=== PATIENT | female | born 1955 | race Caucasian/White ===

== ENCOUNTER 2019-04-16 22:02 | Observation (INO) ==
[2019-04-16] MEDS ORDERED: methylPREDNISolone SOD SUC 125 MG/2 ML VIAL IV STA (22:50)
[2019-04-16 23:35] LABS: Basophils % 0.1 % (0.0-0.8); Eosinophils % 0.1 % (0.00-10.9); Hematocrit 34.4 VOL% (35.7-47.0); Hemoglobin 11.1 GM/DL (12.0-16.0); Immature Granulocytes % 1.8 %; Immature Granulocytes Absolute 0.35 #; Lymphocytes # 1.4 10*3/uL (1.4-4.0); Lymphocytes % 7.2 % (21.3-54.2); Mean Corpuscular HGB Conc 32.3 GM/DL (32-36); Mean Corpuscular Volume 88.2 FL (87-102); Mean Platelet Volume 10.3 FL (9.6-12.0); Monocytes % 7.9 % (1.7-12.7); Neutrophils % 82.9 % (38.7-73.9); Platelet Count 219 T/CUMM (130-400); Red Cell Distribution Width 14.6 % (9.3-17.3); White Blood Count 19.1 T/CUMM (4-12)
[2019-04-16 23:43] LABS: PT Patient Result 10.5 SECS
[2019-04-17] LABS: Alanine Aminotransferase 28 U/L (13-56); Albumin 2.3 G/DL (3.4-5.0); Alkaline Phosphatase 77 U/L (45-117); Aspartate Amino Transferase 26 U/L (0-37); Bilirubin,Total < 0.39 MG/DL (0.2-1.0); Blood Urea Nitrogen 95 MG/DL (7-18); Calcium 8.1 MG/DL (8.5-10.1); Glucose 132 MG/DL (74-106); Osmolality,Calculated 313.1 MOS/KG (273-304); Total Protein 5.5 G/DL (6.4-8.3); Troponin I < 0.015 NG/ML (0.00-0.045)
[2019-04-17] MEDS ORDERED: BISACODYL 5 MG TABLET PO PRN (01:29)
[2019-04-17] MEDS ORDERED: NICOTINE 21 MG/24 HR PATCH TRANSDERM PRN (01:29)
[2019-04-17] MEDS ORDERED: ONDANSETRON 4 MG/2 ML VIAL IV PRN (01:29)
[2019-04-17] MEDS ORDERED: diphenhydrAMINE CAP 25 MG CAPSULE PO PRN (01:29)
[2019-04-17] MEDS ORDERED: ACETAMINOPHEN 325 MG TABLET PO PRN (01:29)
[2019-04-17] MEDS ORDERED: guaiFENesin/DM ER 600-30 MG TABLET PO PRN (01:29)
[2019-04-17 02:00] LABS: Risk Ratio 2.69; VLDL CHOLESTEROL 25.4 MG/DL
[2019-04-17] MEDS: MORPHINE 4 MG/1 ML VIAL IV PRN ×3 (04:47→19:55)
[2019-04-17] MEDS: SODIUM CHLORIDE 0.9% 1,000 ML IV SCH ×2 (04:50→15:40)
[2019-04-17 05:39] LABS: Albumin 2.4 G/DL (3.4-5.0); Bilirubin,Total 0.4 MG/DL (0.2-1.0); Calcium 8.4 MG/DL (8.5-10.1); Osmolality,Calculated 308.1 MOS/KG (273-304); Total Protein 5.5 G/DL (6.4-8.3)
[2019-04-17] MEDS ORDERED: DEXTROSE 50% 25 GM/50 ML SYRINGE IV PRN (10:09)
[2019-04-17] MEDS ORDERED: GLUCAGON 1 MG VIAL IM PRN (10:09)
[2019-04-17 13:59] LABS: Apearance,Urine CLEAR (Clear); Bilirubin,Urine Negative (Negative); Blood, Urine Small mg/dL (Negative); Glucose,Urine (UA) Negative (Negative); Ketones,Urine Negative (Negative); Mucus,Urine Occasional /LPF (Occasional); Nitrite,Urine Negative (Negative); Protein,Urine >=500 MG/DL; RBC,Urine 1 /HPF (0-4); Squamous Epithelial Cell,Urine Occasional /HPF (0-10); Urine Color Yellow (Yellow); Urine Specific Gravity 1.016 (1.001-1.035); Urine Urobilinogen < 2.0 EU/DL (0.2-1.0); WBC,Urine 5 /HPF (0-6)
[2019-04-17] MEDS ORDERED: ERGOCALCIFEROL 50,000 UNIT CAPSULE PO SCH (14:00)
[2019-04-17] MEDS: DEXAMETHASONE 4 MG TABLET PO SCH ×2 (15:38→20:53)
[2019-04-17] MEDS ORDERED: DEXTROSE 50% 25 GM/50 ML VIAL IV PRN (15:44)
[2019-04-17] MEDS: INSULIN REGULAR 100 UNIT/ML SUBCUT SCH ×2 (16:04→20:59)
[2019-04-17] MEDS ORDERED: CARVEDILOL 25 MG TABLET PO ONE (16:37)
[2019-04-17] MEDS ORDERED: amLODIPine 5 MG TABLET PO ONE (16:38)
[2019-04-17] MEDS ORDERED: ISOSORBIDE MONONITRATE 30 MG TABLET PO ONE (16:38)
[2019-04-17] MEDS: ALBUTEROL 2.5 MG/3 ML NEB RESP TX SCH (16:48)
[2019-04-17] MEDS ORDERED: ATORVASTATIN 80 MG TABLET PO SCH (21:00)
[2019-04-17] MEDS ORDERED: ISOSORBIDE MONONITRATE 30 MG TABLET PO SCH ×2 (21:00)
[2019-04-17] MEDS ORDERED: traZODone 50 MG TABLET PO SCH (21:00)
[2019-04-17] MEDS ORDERED: CARVEDILOL 25 MG TABLET PO SCH ×2 (21:00)
[2019-04-17] MEDS ORDERED: DULoxetine 30 MG CAPSULE PO SCH (21:00)
[2019-04-17] MEDS ORDERED: GABAPENTIN 300 MG CAPSULE PO SCH (21:00)
[2019-04-17] MEDS ORDERED: amLODIPine 5 MG TABLET PO SCH ×2 (21:00)
[2019-04-18] MEDS: SODIUM CHLORIDE 0.9% 1,000 ML IV SCH (00:13)
[2019-04-18] MEDS: MORPHINE 4 MG/1 ML VIAL IV PRN (00:46)
[2019-04-18] MEDS: ALBUTEROL 2.5 MG/3 ML NEB RESP TX SCH (07:14)
[2019-04-18 08:12] VITALS: BP 142/64
[2019-04-18] MEDS: DEXAMETHASONE 4 MG TABLET PO SCH (08:47)
[2019-04-18] MEDS: INSULIN REGULAR 100 UNIT/ML SUBCUT SCH (08:47)
[2019-04-18] MEDS ORDERED: INSULIN LISPRO 100 UNIT/ML SUBCUT SCH (09:00)
[2019-04-18] MEDS ORDERED: FUROSEMIDE 40 MG TABLET PO SCH (09:00)
[2019-04-18] MEDS ORDERED: CLOPIDOGREL 75 MG TABLET PO SCH (09:00)
[2019-04-18] MEDS ORDERED: levETIRAcetam 250 MG TABLET PO SCH (11:00)
[2019-04-18] MEDS ORDERED: ISOSORBIDE MONONITRATE 30 MG TABLET PO SCH (21:00)
[2019-04-18] MEDS ORDERED: CARVEDILOL 25 MG TABLET PO SCH (21:00)
[2019-04-18] MEDS ORDERED: amLODIPine 5 MG TABLET PO SCH (21:00)
== END 2019-04-18 11:25 | disposition home or self-care (01) ==
LOC: N.EDINP 22:02 → N.4E 22:02 → N.ED 22:02 → OBSVTOIN 04-17 01:29 → N.4E 04-17 03:31
PROVIDERS: ADMIT Internal Medicine; ATTEND Internal Medicine

== ENCOUNTER 2019-06-01 09:33 | Inpatient (IN) ==
[2019-06-01] MEDS ORDERED: SODIUM CHLORIDE 0.9% 1,000 ML IV STA (10:03)
[2019-06-01 10:15] LABS: Hemoglobin 8.8 GM/DL (12.0-16.0); Lymphocytes # 0.4 10*3/uL (1.4-4.0); Lymphocytes % 97.4 % (21.3-54.2); Mean Corpuscular HGB Conc 31.4 GM/DL (32-36); Mean Platelet Volume 9.7 FL (9.6-12.0); Neutrophils % 2.6 % (38.7-73.9); Platelet Count 90 T/CUMM (130-400); Red Blood Count 3.11 MC/CUMM (3.8-5.5); Red Cell Distribution Width 16.3 % (9.3-17.3)
[2019-06-01] MEDS ORDERED: DEXAMETHASONE 10 MG/1 ML VIAL IV STA (10:32)
[2019-06-01 10:37] LABS: White Blood Count 0.4 T/CUMM (4-12)
[2019-06-01 10:38] LABS: PT Patient Result 10.7 SECS; Partial Thromboplastin Time 26.5 SECS (0-40)
[2019-06-01 10:56] LABS: Lymphocytes 100 % (20-55); Platelet Estimate Decreased; Total Cells Counted 100
[2019-06-01 10:57] LABS: Anisocytosis Slight
[2019-06-01 11:18] LABS: Amorphous Crystals,Urine Moderate /HPF (Few); Apearance,Urine CLEAR (Clear); Bilirubin,Urine Negative (Negative); Blood, Urine Small mg/dL (Negative); Glucose,Urine (UA) Negative (Negative); Hyaline Casts,Urine 3 /LPF (0-3); Ketones,Urine Negative (Negative); Mucus,Urine Occasional /LPF (Occasional); Nitrite,Urine Negative (Negative); Protein,Urine >=500 MG/DL; Urine Color Yellow (Yellow); Urine Specific Gravity 1.015 (1.001-1.035); Urine Urobilinogen < 2.0 EU/DL (0.2-1.0)
[2019-06-01 11:30] LABS: Barbiturates Screen,Urine Negative (Negative); Benzodiazepines Screen,Urine Negative (Negative); Cannabinoid Screen,Urine Negative (Negative); Opiate Screen,Urine Positive (Negative); Phencyclidine Screen,Urine Negative (Negative)
[2019-06-01] MEDS ORDERED: DEXTROSE 50% 25 GM/50 ML SYRINGE IV ONE (14:09)
[2019-06-01] MEDS ORDERED: DEXTROSE 50% 25 GM/50 ML VIAL IV STA (14:15)
[2019-06-01] MEDS ORDERED: DEXTROSE 5% NACL 0.45% 1,000 ML IV SCH (14:30)
[2019-06-01] MEDS: FILGRASTIM-SNDZ 300 MCG/0.5 ML SYRINGE SUBCUT SCH (14:40)
[2019-06-01] MEDS ORDERED: MORPHINE 4 MG/1 ML VIAL IV PRN (16:17)
[2019-06-01] MEDS ORDERED: ACETAMINOPHEN 325 MG TABLET PO PRN (16:17)
[2019-06-01] MEDS ORDERED: SODIUM CHLORIDE 0.9% 1,000 ML IV SCH (16:30)
[2019-06-01] MEDS ORDERED: LEVOFLOXACIN INJ 500 MG in PREMIX 1 EACH IV SCH (17:00)
[2019-06-01] MEDS: DEXTROSE 10% 25 GM/250 ML BAG IV PRN ×3 (17:10→21:12)
[2019-06-01 17:12] LABS: Albumin 1.3 G/DL (3.4-5.0); Bilirubin,Total 0.4 MG/DL (0.2-1.0); Calcium 7.7 MG/DL (8.5-10.1); Osmolality,Calculated 305.3 MOS/KG (273-304); Total Protein 5.1 G/DL (6.4-8.3)
[2019-06-01] MEDS ORDERED: GLUCAGON 1 MG VIAL IM PRN (17:19)
[2019-06-01] MEDS ORDERED: DEXTROSE 10% 250 ML IV ONE ×3 (17:20→21:08)
[2019-06-01] MEDS ORDERED: DEXTROSE 5% 1,000 ML IV SCH (18:00)
[2019-06-01] MEDS: POTASSIUM CHLORIDE INJ 20 MEQ in DEXTROSE 5% 1,000 ML IV SCH (20:42)
[2019-06-01] MEDS: DEXAMETHASONE 4 MG/1 ML VIAL IV SCH (20:42)
[2019-06-02] MEDS ORDERED: DEXTROSE 10% 250 ML IV ONE ×3 (00:29→05:59)
[2019-06-02] MEDS: DEXTROSE 10% 25 GM/250 ML BAG IV PRN ×3 (00:34→06:07)
[2019-06-02 04:26] LABS: Hemoglobin 7.3 GM/DL (12.0-16.0); Lymphocytes # 0.1 10*3/uL (1.4-4.0); Lymphocytes % 91.7 % (21.3-54.2); Mean Corpuscular HGB Conc 31.7 GM/DL (32-36); Mean Corpuscular Volume 89.1 FL (87-102); Mean Platelet Volume 10.2 FL (9.6-12.0); Neutrophils % 8.3 % (38.7-73.9); Red Blood Count 2.58 MC/CUMM (3.8-5.5); Red Cell Distribution Width 15.9 % (9.3-17.3)
[2019-06-02 04:54] LABS: Albumin 1.1 G/DL (3.4-5.0); Bilirubin,Total 0.5 MG/DL (0.2-1.0); Calcium 7.6 MG/DL (8.5-10.1); Osmolality,Calculated 299.1 MOS/KG (273-304); Total Protein 4.7 G/DL (6.4-8.3)
[2019-06-02 05:03] LABS: White Blood Count 0.1 T/CUMM (4-12)
[2019-06-02 05:04] LABS: Platelet Count 34 T/CUMM (130-400)
[2019-06-02 06:33] LABS: Lymphocytes 80 % (20-55); Segmented Neutrophils 20 % (50-85); Total Cells Counted 100
[2019-06-02 06:34] LABS: Anisocytosis Slight; Microcytosis Slight; Ovalocytes Few; Platelet Estimate Decreased
[2019-06-02] MEDS: POTASSIUM CHLORIDE INJ 20 MEQ in DEXTROSE 5% 1,000 ML IV SCH ×3 (07:14→20:33)
[2019-06-02] MEDS ORDERED: SODIUM CHLORIDE 0.9% 1,000 ML IV PRN (08:10)
[2019-06-02] MEDS ORDERED: PANTOPRAZOLE 40 MG TABLET PO SCH (09:00)
[2019-06-02] MEDS: FAMOTIDINE 20 MG/2 ML VIAL IV SCH ×2 (09:58→20:32)
[2019-06-02] MEDS: FILGRASTIM-SNDZ 300 MCG/0.5 ML SYRINGE SUBCUT SCH (10:01)
[2019-06-02] MEDS: DEXAMETHASONE 4 MG/1 ML VIAL IV SCH ×3 (10:02→20:31)
[2019-06-02] MEDS: VANCOMYCIN INJ 1,250 MG in SODIUM CHLORIDE 0.9% 250 ML IV SCH (10:06)
[2019-06-02] MEDS ORDERED: DEXTROSE 10% 250 ML BAG IV PRN (12:00)
[2019-06-02 12:38] LABS: ABG Base Excess 0.1 MMOL/L (-2.5-2.5); ABG HCO3 24.6 MMOL/L (20-26); ABG Oxygen Saturation 99.1 % (95-100); ABG PCO2 40.6 MM HG (35-48); ABG PH 7.396 (7.35-7.45); ABG TCO2 23.2 MMOL/L (23-27)
[2019-06-02] MEDS: ALBUTEROL/IPRATROPIUM 3 ML NEB RESP TX SCH ×3 (14:29→23:07)
[2019-06-02] MEDS: hydrALAZINE 20 MG/1 ML VIAL IV PRN (16:40)
[2019-06-02] MEDS: MORPHINE 4 MG/1 ML VIAL IV PRN (17:25)
[2019-06-02] MEDS: LEVOFLOXACIN INJ 250 MG in PREMIX 1 EACH IV SCH (18:07)
[2019-06-03] MEDS: hydrALAZINE 20 MG/1 ML VIAL IV PRN ×2 (00:46→09:10)
[2019-06-03] MEDS: ALBUTEROL/IPRATROPIUM 3 ML NEB RESP TX SCH ×5 (03:03→19:47)
[2019-06-03] MEDS: POTASSIUM CHLORIDE INJ 20 MEQ in DEXTROSE 5% 1,000 ML IV SCH (06:34)
[2019-06-03 06:50] LABS: Hemoglobin 9.3 GM/DL (12.0-16.0); Lymphocytes # 0.1 10*3/uL (1.4-4.0); Mean Corpuscular HGB Conc 33.2 GM/DL (32-36); Mean Corpuscular Volume 88.1 FL (87-102); Mean Platelet Volume 11.2 FL (9.6-12.0); Red Blood Count 3.18 MC/CUMM (3.8-5.5); Red Cell Distribution Width 15.4 % (9.3-17.3)
[2019-06-03 06:54] LABS: Platelet Count 18 T/CUMM (130-400); White Blood Count 0.1 T/CUMM (4-12)
[2019-06-03 07:29] LABS: Albumin 0.8 G/DL (3.4-5.0); Bilirubin,Total 1.7 MG/DL (0.2-1.0); Calcium 6.9 MG/DL (8.5-10.1); Osmolality,Calculated 281.1 MOS/KG (273-304); Total Protein 4.6 G/DL (6.4-8.3)
[2019-06-03 08:03] LABS: Acanthocytes Few; Hypochromasia Slight; Lymphocytes 100 % (20-55); Ovalocytes Few; Platelet Estimate Decreased; Polychromasia Slight; Total Cells Counted 100
[2019-06-03] MEDS ORDERED: MAGNESIUM SULF RIDER 4 GM in PREMIX 1 EACH IV PRN (08:03)
[2019-06-03] MEDS ORDERED: MAGNESIUM SULF RIDER 2 GM in PREMIX 1 EACH IV PRN (08:03)
[2019-06-03] MEDS: MORPHINE 4 MG/1 ML VIAL IV PRN ×2 (09:08→21:23)
[2019-06-03] MEDS: DEXAMETHASONE 4 MG/1 ML VIAL IV SCH ×3 (09:08→20:13)
[2019-06-03] MEDS: FILGRASTIM-SNDZ 300 MCG/0.5 ML SYRINGE SUBCUT SCH (09:10)
[2019-06-03] MEDS: FAMOTIDINE 20 MG/2 ML VIAL IV SCH ×2 (09:10→20:13)
[2019-06-03] MEDS: VANCOMYCIN INJ 1,250 MG in SODIUM CHLORIDE 0.9% 250 ML IV SCH (10:10)
[2019-06-03] MEDS ORDERED: SODIUM CHLORIDE 0.9% 1,000 ML IV PRN (11:16)
[2019-06-03] MEDS ORDERED: DEXTROSE 50% 25 GM/50 ML VIAL IV PRN (11:58)
[2019-06-03] MEDS: INSULIN REGULAR 100 UNIT/ML SUBCUT SCH ×3 (12:20→23:14)
[2019-06-03] MEDS ORDERED: DEXTROSE 5% KCL 20 MEQ 20 MEQ/1,000 ML BAG IV SCH (12:48)
[2019-06-03] MEDS ORDERED: DILTIAZEM 50 MG/10 ML VIAL IV ONE (17:23)
[2019-06-03] MEDS ORDERED: DILTIAZEM 25 MG/5 ML VIAL IV ONE ×2 (17:24→17:25)
[2019-06-03] MEDS: dilTIAZem Drip 125 MG/125 ML PREMIX IV SCH (17:30)
[2019-06-03] MEDS: LEVOFLOXACIN INJ 250 MG in PREMIX 1 EACH IV SCH (18:10)
[2019-06-04] MEDS: dilTIAZem Drip 125 MG/125 ML PREMIX IV SCH (03:17)
[2019-06-04] MEDS: ALBUTEROL/IPRATROPIUM 3 ML NEB RESP TX SCH ×3 (03:44→06:58)
[2019-06-04 05:07] LABS: Hematocrit 27.9 VOL% (35.7-47.0); Mean Corpuscular HGB Conc 32.3 GM/DL (32-36); Mean Corpuscular Volume 88.9 FL (87-102); Mean Platelet Volume 11.9 FL (9.6-12.0); Red Blood Count 3.14 MC/CUMM (3.8-5.5); Red Cell Distribution Width 15.4 % (9.3-17.3)
[2019-06-04 05:13] LABS: Platelet Count 13 T/CUMM (130-400)
[2019-06-04 05:47] LABS: Anisocytosis 1+; Hypochromasia Slight; Microcytosis Slight
[2019-06-04 05:48] LABS: Platelet Estimate Decreased
[2019-06-04] MEDS: INSULIN REGULAR 100 UNIT/ML SUBCUT SCH (06:17)
[2019-06-04] MEDS ORDERED: SODIUM BICARBONATE 50 MEQ/50 ML SYRINGE IV ONE (07:32)
[2019-06-04] MEDS ORDERED: EPINEPHrine 1 MG/10 ML SYRINGE ONE (07:32)
[2019-06-04] MEDS ORDERED: LORazepam 2 MG/1 ML VIAL IV PRN (08:04)
[2019-06-04] MEDS ORDERED: MORPHINE 10 MG/1 ML VIAL IV ONE (08:05)
[2019-06-04] MEDS ORDERED: LORazepam 2 MG/1 ML VIAL ONE (08:07)
[2019-06-04 09:24] VITALS: BP 0/0
== END 2019-06-04 08:28 | disposition expired | DRG 843 ==
LOC: EDBD → EDUNIT# → N.ED 09:33 → SUATTDRO 14:10 → N.5E 14:10 → N.4E 16:19 → N.ICU 06-02 12:00
PROVIDERS: ADMIT Internal Medicine; ATTEND Internal Medicine Geriatric Medicine